=== PATIENT | female | born 2000 | race Caucasian/White ===

== ENCOUNTER 2019-05-29 16:40 | Emergency (ER) | payer SELFPAY ==
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
[2019-05-29] MEDS ORDERED: Ibuprofen 600 MG Tab PO ONE (17:19)
--- NOTE | 2019-05-29 18:06 | CT ---
CT cervical spine Technique: Multiple axial sections were obtained from above C1 inferiorly to the bottom of T2. Reconstructed sagittal and coronal images were obtained. Limitations: Photon attenuation causing artifact is seen due to patient body habitus. Findings: Vertebral body heights and disc spaces are fairly well preserved. No discrete fracture is appreciated. No bony central or bony neural foraminal stenosis is seen. No abnormal subluxation is seen. Impression: 1. Nothing acute is appreciated on CT study the cervical spine. As mentioned above, details are somewhat limited due to body habitus. Diagnostic code #2
--- NOTE | 2019-05-29 18:06 | CT ---
CT lumbar spine Technique: Multiple axial sections were obtained from the mid T12 level inferiorly through the sacrum. Reconstructed sagittal and coronal images were obtained. Limitations: Artifact from photon attenuation caused by patient body habitus. Findings: Vertebral body heights and disc spaces are maintained. Posterior discs are maintained with no traumatic disc herniation. No bony central or bony neural foraminal stenosis is seen. Vertebral bodies and posterior arches are intact. No fracture is visualized. No abnormal subluxation is seen. Impression: 1. Artifact due to patient body habitus as noted above. 2. No acute abnormality is appreciated on CT study of the lumbar spine. Diagnostic code #2
--- NOTE | 2019-05-30 07:21 | CR ---
Right shoulder: Three views of the right shoulder were obtained. Comparison: No prior shoulder imaging. Glenohumeral joint and acromioclavicular joint appear unremarkable. No fracture, dislocation or other bony abnormality is seen. Impression: 1. No abnormality is identified on right shoulder study. Diagnostic code #1
== END 2019-05-29 18:20 | disposition home or self-care (01) ==
LOC: JD.ED 16:40
DX: S13.4XXA Sprain of ligaments of cervical spine, initial encounter (principal); S39.012A Strain of muscle, fascia and tendon of lower back, initial encounter; S40.011A Contusion of right shoulder, initial encounter; E66.9 Obesity, unspecified; Z88.0 Allergy status to penicillin; V49.50XA Passenger injured in collision with unspecified motor vehicles in traffic accident, initial encounter
CPT/HCPCS: 72125; 72131; 73030; 99284; A9270